=== PATIENT | female | born 1935 | race Caucasian/White ===

== ENCOUNTER 2018-06-12 13:29 | Emergency (ER) | payer MEDICARE, OTHER ==
[~2018-06-12] VITALS: Ht 160 cm; Wt 57.0 kg
[~2018-06-12 13:29] MED LIST: ALBU8.5H8 INH; ALPR0.5T6 PO; ALPRAZOLAM PO; AMIT25TA PO; BUDE10.2 INH; DOCU100T3 PO; ESTR0.6246 PO; HYDR-3276 PO; HYDROCODONE-APAP PO; LINA145C PO; MEMA28CA PO; METO25TA2 PO; METO50TA4 PO; METOPROLOL PO; NAMENDA PO; PRO AIR INH; SYMBICORT INH; VENL75TA PO; VENLAFAXINE PO; VERA40TA PO; VERAPAMIL PO; [UNRECOGNIZED DRUG - OTHER] PO
[2018-06-12 13:51] LABS: BASOPHILS # (AUTO) 0.02 x10^3/uL (0-0.1); BASOPHILS % (AUTO) 0 % (0-1); EOSINOPHILS # (AUTO) 0.29 x10^3/uL (0-0.4); EOSINOPHILS % (AUTO) 4 % (1-7); LYMPHOCYTES # (AUTO) 1.65 x10^3/uL (1-3.4); LYMPHOCYTES % (AUTO) 22 % (22-44); MD NO; MEAN CORPUSCULAR HEMOGLOBIN 30.2 pg (27.0-34.8); MEAN CORPUSCULAR HGB CONC 33.7 g/dL (32.4-35.8); MEAN CORPUSCULAR VOLUME 89.4 fL (80-100); MEAN PLATELET VOLUME 8.4 fL (7.4-10.4); MONOCYTES # (AUTO) 0.47 x10^3/uL (0.2-0.8); MONOCYTES % (AUTO) 6 % (2-9); NEUTROPHILS # (AUTO) 5.21 x10^3/uL (1.8-6.8); NEUTROPHILS % (AUTO) 68 % (42-75); PLATELET COUNT 284 x10^3/uL (130-400); RED BLOOD COUNT 4.47 x10^6/uL (3.82-5.3); RED CELL DISTRIBUTION WIDTH 14.4 % (9.6-15.2)
[2018-06-12 14:00] LABS: ALANINE AMINOTRANSFERASE 15 U/L (12-78); ALBUMIN 3.4 g/dL (3.4-5.0); ANION GAP 4 mmol/L (5-15); CALCIUM 8.6 mg/dL (8.5-10.1); CHLORIDE 106 mmol/L (98-107); CREATININE 0.83 mg/dL (0.55-1.02)
[2018-06-12 14:02] LABS: ALKALINE PHOSPHATASE 88 U/L (45-117); BILIRUBIN,TOTAL 0.2 mg/dL (0.2-1.0); TOTAL PROTEIN 7.7 g/dL (6.4-8.2)
--- NOTE | 2018-06-12 14:12 | NUR ---
Plan of care discussed with patient and family, verbalize understanding, questions answered. Patient smiling in bed watching television, call restrepo within reach.
[2018-06-12] MEDS ORDERED: SODIUM CHLORIDE FLUSH 10ML SYR IVF ONE (14:30)
--- NOTE | 2018-06-12 15:10 | NUR ---
Patient transported for ct scan.
[2018-06-12] MEDS ORDERED: OMNIPAQUE 350 MG/ML, 100ML BOTTLE ONE (15:27)
--- NOTE | 2018-06-12 15:32 | NUR ---
Attempted to give urine sample, unable to urinate at this time. Waiting for CT results.
--- NOTE | 2018-06-12 16:19 | NUR ---
Discharge instructions discussed with patient and her family, questions answered. Patient assisted with dressing and into wheelchair, patient wheeled to discharge desk with her family. Family states they were told by Dr. Rosales urine sample not needed prior to discharge.
[2018-06-12 16:20] VITALS: BP 171/90
== END 2018-06-12 16:22 | disposition home or self-care (01) ==
LOC: ED 16:13
DX: R10.31 Right lower quadrant pain (principal); F41.1 Generalized anxiety disorder; I10 Essential (primary) hypertension; J44.9 Chronic obstructive pulmonary disease, unspecified; Z90.710 Acquired absence of both cervix and uterus; Z87.891 Personal history of nicotine dependence
CPT/HCPCS: 36415; 74021; 74177; 80053; 83690; 85025; 99284; Q9967